=== PATIENT | male | born 1995 | race Caucasian/White ===

== ENCOUNTER 2021-08-22 11:15 | Observation (INO) ==
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
--- NOTE | 2021-08-22 14:55 | CT Scan Report ---
CT head/brain wo con CLINICAL HISTORY: RLE weakness COMPARISON STUDY: No previous studies for comparison. CT DOSE: 972.49 mGy.cm TECHNIQUE: Standard CT of the Brain was performed without IV contrast. A dose lowering technique was utilized adhering to the principles of ALARA. FINDINGS: Extraaxial space: There is no evidence for subdural hematoma. There are no extra-axial fluid collecti ons. Ventricles and cisterns: The ventricles are normal in size and configuration. There is no evidence f or midline shift or mass effect. Parenchyma: There is no subarachnoid or intraparenchymal hemorrhage. There is no evidence for an acu te infarct or cerebral edema. There is homogeneous attenuation of the brain parenchyma. There are no gross mass lesions. Osseous structures: There is no evidence for an acute fracture. The visualized paranasal sinuses are clear. The mastoid air cells are clear bilaterally. Soft tissues: There is no evidence for focal soft tissue swelling. IMPRESSION: No acute intracerebral pathology. ACT 112: Negative or not required by law. Electronically signed by: Levi Rm M.D. 08/22/2021 2:53 PM
[2021-08-22 15:09] LABS: Basophils # (auto) 0.03 K/uL (0-0.2); Basophils % (auto) 0.4 %; Eosinophils % (auto) 1.3 %; Hematocrit (blood only) 49.9 % (42-52); Hemoglobin 17.2 g/dL (14.0-18.0); Immature Granulocytes # (auto) 0.01 K/uL (0.00-0.02); Immature Granulocytes % (auto) 0.1 %; Lymphocytes # (auto) 2.06 K/uL (1.2-3.4); Lymphocytes % (auto) 26.4 %; Mean Corpuscular Hemoglobin 30.8 pg (25-34); Mean Corpuscular Hgb Conc 34.5 g/dL (32-36); Mean Corpuscular Volume 89.3 fL (80-100); Mean Platelet Volume 10.5 fL (7.4-10.4); Monocytes # (auto) 0.64 K/uL (0.11-0.59); Monocytes % (auto) 8.2 %; Neutrophils # (auto) 4.97 K/uL (1.4-6.5); Neutrophils % (auto) 63.6 %; Platelet Count 255 K/uL (130-400); RDW Standard Deviation 42.7 fL (36.4-46.3); Red Blood Count 5.59 M/uL (4.7-6.1); White Blood Count 7.81 K/uL (4.8-10.8)
[2021-08-22 15:26] LABS: Alanine Aminotransferase 89 (12-78); Albumin Level 4.3 gm/dl (3.4-5.0); Aspartate Aminotransferase 50 U/L (15-37); BUN Creatinine Ratio 13.4 (10-20); Blood Urea Nitrogen 12 mg/dl (7-18); Calcium 9.5 mg/dl (8.5-10.1); Carbon Dioxide 24 mmol/L (21-32); Chloride 107 mmol/L (98-107); Est GFR (African American) 132.6 ml/min; Est GFR (Non-African American) 114.4 ml/min; Glucose 86 mg/dl (70-99); Potassium 3.8 mmol/L (3.5-5.1); Sodium 138 mmol/L (136-145)
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
[2021-08-22 15:29] LABS: Albumin Globulin Ratio 1.2 (0.9-2); Alkaline Phosphatase 97 U/L (45-117); Bilirubin,Total 0.6 mg/dl (0.2-1); Globulin 3.7 gm/dl (2.5-4.0)
--- NOTE | 2021-08-22 16:49 | Electrocardiogram Report ---
Test Reason : Blood Pressure : / mmHG Vent. Rate : 069 BPM Atrial Rate : 069 BPM P-R Int : 188 ms QRS Dur : 104 ms QT Int : 388 ms P-R-T Axes : 020 033 046 degrees QTc Int : 415 ms Poor data quality, interpretation may be adversely affected Normal sinus rhythm Normal ECG No previous ECGs available Confirmed by Ga Barnhart ([id number]) on 08/22/2021 4:48:55 PM Referred By: Cristiane SCI Confirmed By:Fabrice Barnhart
[2021-08-22] MEDS ORDERED: LORazepam 1 MG/2 ML VIAL IV STA (16:50)
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
--- NOTE | 2021-08-22 20:04 | Magnetic Resonance Report ---
MRI OF THE THORACIC SPINE WITHOUT IV CONTRAST CLINICAL HISTORY: Right lower extremity weakness. Decreased sensation and reflexes. COMPARISON STUDY: No priors. TECHNIQUE: MRI of the thoracic spine is performed utilizing various T1 and T2-weighted sequences in t he axial and sagittal planes. IV contrast was not administered for this examination. Examination is c ompromised by motion artifact. FINDINGS: Vertebral body height and alignment are maintained throughout the thoracic spine. The spino us processes appear intact. A hemangioma is incidentally noted in the body of T12. No destructive bon y lesion is seen. Mild disc desiccation and loss of height is seen at T11-T12 with associated endplat e edema. The intervertebral discs are otherwise normal in height and signal intensity. There is no di sc herniation or central canal stenosis. The thoracic spinal cord is normal in morphology and signal intensity. There is no evidence of significant neural foraminal narrowing throughout the thoracic reg ion. The paraspinous soft tissues are within normal limits. There is no evidence of pleural effusion. IMPRESSION: 1. There is no disc herniation, central canal stenosis, or neural foraminal narrowing seen throughout the thoracic spine. 2. The thoracic spinal cord is normal in morphology and signal intensity. 3. No destructive bony process is identified. 4. Mild endplate edema is noted at T11-T12. Dictated: 08/22/2021 7:47 PM Transcribed: 08/22/2021 8:01 PM Seda [id number] [email or web address] Electronically signed by: Mumtaz Jones M.D. 08/22/2021 8:37 PM
--- NOTE | 2021-08-22 20:53 | Magnetic Resonance Report ---
MRI OF LUMBAR SPINE WITHOUT IV CONTRAST CLINICAL HISTORY: Right leg weakness. Diminished sensation of the right leg. COMPARISON STUDY: No priors. TECHNIQUE: MRI of the lumbar spine is performed utilizing various T1 and T2-weighted images in the ax ial and sagittal planes. IV contrast was not administered for this examination. The examination is de graded by motion artifact. FINDINGS: Lumbar spine: Vertebral body height and alignment are maintained at the lumbar spine. The transverse and spinous processes appear intact. There is no evidence of spondylolysis. No destructive bony lesio n is seen. A hemangioma is incidentally noted in the body of T12. Mild endplate edema is noted at T11 -T12. Intervertebral discs: There is disc desiccation and loss of height at T11-T12. The lumbar discs are n ormal in height and signal intensity. Spinal cord: The visualized spinal cord is normal in morphology and signal intensity. The conus medul javon terminates at the L1-L2 interspace. The nerve roots of the cauda equina are normal in morpholog y. L1-L2: Unremarkable. L2-L3: Unremarkable. L3-L4: Unremarkable. L4-L5: There is minimal disc bulge. The central canal and neural foramina are patent. L5-S1: The central canal and neural foramina are patent. Sacrum: The visualized sacrum is normal in morphology and signal intensity. Soft tissues: The paraspinous soft tissues are normal in appearance. The retroperitoneal structures a re grossly unremarkable but incompletely evaluated. The bladder is distended. IMPRESSION: 1. There is no disc herniation, central canal stenosis, or neural foraminal narrowing seen throughout the lumbar spine. 2. No destructive bony process is identified. 3. Bladder distention. Dictated: 08/22/2021 8:31 PM Transcribed: 08/22/2021 8:51 PM [place] [id number] [facility] Electronically signed by: Mumtaz Jones M.D. 08/22/2021 8:52 PM
[2021-08-22] MEDS ORDERED: ACETAMINOPHEN 500 MG TAB PO STA (21:04)
[2021-08-22] MEDS ORDERED: hydrOXYzine HCl 25 MG TAB PO STA (21:49)
[2021-08-22] MEDS ORDERED: OXcarbazepine 150 MG TABLET PO STA ×2 (21:49)
[2021-08-22] MEDS ORDERED: ARIPiprazole 10 MG TAB PO STA (21:49)
[2021-08-22] MEDS ORDERED: CeleBREX 200 MG CAP PO STA (21:49)
[2021-08-22] MEDS ORDERED: cloNIDine HCL 0.1 MG TAB PO STA (21:55)
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
[2021-08-22] MEDS ORDERED: GADOBUTROL 65ML VIAL IV ONE (23:39)
[2021-08-23] MEDS ORDERED: ACETAMINOPHEN 325 MG TAB PO PRN (02:18)
[2021-08-23] MEDS ORDERED: ONDANSETRON INJ 2 MG/ML 2 ML VIAL IV PRN (02:18)
[2021-08-23 02:36] LABS: Magnesium 2.1 mg/dl (1.8-2.4); Phosphorus 3.6 mg/dl (2.5-4.9)
[2021-08-23 05:10] LABS: Basophils # (auto) 0.02 K/uL (0-0.2); Basophils % (auto) 0.3 %; Eosinophils # (auto) 0.15 K/uL (0-0.5); Eosinophils % (auto) 2.2 %; Hematocrit (blood only) 47.8 % (42-52); Hemoglobin 16.3 g/dL (14.0-18.0); Immature Granulocytes # (auto) 0.02 K/uL (0.00-0.02); Immature Granulocytes % (auto) 0.3 %; Lymphocytes # (auto) 2.97 K/uL (1.2-3.4); Lymphocytes % (auto) 43.2 %; Mean Corpuscular Hemoglobin 30.8 pg (25-34); Mean Corpuscular Hgb Conc 34.1 g/dL (32-36); Mean Corpuscular Volume 90.2 fL (80-100); Mean Platelet Volume 10.3 fL (7.4-10.4); Monocytes # (auto) 0.69 K/uL (0.11-0.59); Neutrophils # (auto) 3.03 K/uL (1.4-6.5); Platelet Count 245 K/uL (130-400); RDW Coefficient of Variation 13.2 % (11.5-14.5); RDW Standard Deviation 42.9 fL (36.4-46.3); White Blood Count 6.88 K/uL (4.8-10.8)
[2021-08-23] MEDS: LEVOTHYROXINE SODIUM 175 MCG TABLET PO SCH (05:59)
[2021-08-23 06:05] LABS: Albumin Level 3.7 gm/dl (3.4-5.0); BUN Creatinine Ratio 16.9 (10-20); Bilirubin,Total 0.7 mg/dl (0.2-1); Calcium 9.4 mg/dl (8.5-10.1); Est GFR (Non-African American) 93.2 ml/min; Total Protein 7.2 gm/dl (6.4-8.2)
[2021-08-23 06:24] LABS: T4 Free Thyroxine 0.94 ng/dl (0.8-1.6)
[2021-08-23 06:58] LABS: Potassium 4.4 mmol/L (3.5-5.1)
[2021-08-23 07:10] LABS: Aspartate Aminotransferase 39 U/L (15-37); Bilirubin Direct < 0.1 mg/dl (0-0.2)
--- NOTE | 2021-08-23 08:05 | Magnetic Resonance Report ---
MR brain wo/w con CLINICAL HISTORY: RLE weakness. Patient complains of occasional whole right side giving out. COMPARISON STUDY: No previous studies for comparison. TECHNIQUE: Multiplanar multisequence images of the brain were performed before and after Gadavist, 1 3 mL of IV contrast. Diffusion weighted imaging and ADC mapping was also performed. FINDINGS: Extra-axial space: There is no evidence for a subdural hematoma, There are no extra-axial fluid britta ections. Ventricles and cisterns: The ventricles are normal in size and configuration. There is no evidence f or midline shift or mass effect. Parenchyma: On noncontrast images, there is no evidence for an acute hemorrhage or infarct. No acute diffusion abnormalities are noted on diffusion weighted imaging or ADC mapping. There is normal tang -white differentiation. The sulci and gyri appear normal without effacement. The midline structures a re unremarkable. The posterior fossa structures appear normal. On postcontrast images, there is no evidence for enhancing mass lesion. Osseous structures: The paranasal sinuses are well aerated. The mastoid air cells are well aerated. Soft tissues: No focal soft tissue abnormalities are identified. IMPRESSION: No acute intracranial abnormalities. ACT 112: Negative or not required by law. Electronically signed by: Levi Rm M.D. 08/23/2021 8:04 AM
[2021-08-23] MEDS: FLUTICASONE FUROATE 200MCG 14 PUFFS/INHALER INH SCH (09:30)
[2021-08-23] MEDS: LEVALBUTEROL TARTRATE 15 GM HFA.AER.AD INH SCH ×4 (09:34→23:04)
[2021-08-23] MEDS: OXcarbazepine 150 MG TABLET PO SCH (09:35)
[2021-08-23] MEDS: cloNIDine HCL 0.1 MG TAB PO SCH (09:35)
[2021-08-23] MEDS: CeleBREX 200 MG CAP PO SCH ×2 (09:35→20:04)
[2021-08-23] MEDS: hydrOXYzine HCl 25 MG TAB PO SCH ×2 (09:35→20:01)
[2021-08-23] MEDS: SERTRALINE HCL 50 MG TABLET PO SCH (09:35)
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
[2021-08-23] MEDS ORDERED: OXcarbazepine 150 MG TABLET PO SCH (21:00)
[2021-08-23] MEDS ORDERED: cloNIDine HCL 0.1 MG TAB PO SCH (21:00)
[2021-08-23] MEDS ORDERED: TOPIRAMATE 50 MG TAB PO SCH (21:00)
[2021-08-23] MEDS ORDERED: ARIPiprazole 10 MG TAB PO SCH (21:00)
[2021-08-24] MEDS: LEVOTHYROXINE SODIUM 175 MCG TABLET PO SCH (06:06)
[2021-08-24] MEDS: CeleBREX 200 MG CAP PO SCH (07:54)
[2021-08-24] MEDS: cloNIDine HCL 0.1 MG TAB PO SCH (07:54)
[2021-08-24] MEDS: hydrOXYzine HCl 25 MG TAB PO SCH (07:55)
[2021-08-24] MEDS: OXcarbazepine 150 MG TABLET PO SCH (07:55)
[2021-08-24] MEDS: FLUTICASONE FUROATE 200MCG 14 PUFFS/INHALER INH SCH (07:56)
[2021-08-24] MEDS: SERTRALINE HCL 50 MG TABLET PO SCH (07:56)
[2021-08-24] MEDS: LEVALBUTEROL TARTRATE 15 GM HFA.AER.AD INH SCH (08:11)
[2021-08-24] MEDS ORDERED: OXcarbazepine 150 MG TABLET PO SCH (09:00)
[2021-08-24] MEDS ORDERED: GABAPENTIN 300 MG CAP PO SCH (09:00)
== END 2021-08-24 11:21 | DRG 948 ==
LOC: ED 11:15 → SUATTDRO 21:49 → INTOOBSV 21:49 → EDINP 21:49